=== PATIENT | male | born 1990 | race Two or more races ===

== ENCOUNTER 2017-02-14 12:38 | Emergency (ER) | payer OTHER ==
[2017-02-14 13:01] VITALS: BP 125/83
--- NOTE | 2017-02-14 13:36 | ER Document Report ---
ED Medical Screen (RME) - General Chief Complaint: Incision Problem Stated Complaint: DISCHARGE FROM ARM/PIC LINE Time Seen by Provider: 02/14/17 13:31 Mode of Arrival: Ambulatory Information source: Patient Notes: 27-year-old male presents with cocnerns of infected picc line. pt denies any fevers or chills pt had surgery on his foot, became infected had second surgery and was recently discharged. Patient is receiving Invanz I have greeted and performed a rapid initial assessment of this patient. A comprehensive ED assessment and evaluation of the patient, analysis of test results and completion of the medical decision making process will be conducted by additional ED providers. PHYSICAL EXAMINATION: GENERAL: Well-appearing, well-nourished and in no acute distress. HEAD: Atraumatic, normocephalic. EYES: Pupils equal round extraocular movements intact, conjunctiva are normal. ENT: Nares patent NECK: Normal range of motion LUNGS: No respiratory distress Musculoskeletal:right foot in brace NEUROLOGICAL: Normal speech, normal gait. PSYCH: Normal mood, normal affect. SKIN: right bicep picc line noted TRAVEL OUTSIDE OF THE [place] IN LAST 30 DAYS: No - Related Data Allergies/Adverse Reactions: No Known Allergies Allergy (Verified 02/14/17 13:01) Past Medical History Renal/ Medical History: Denies: Hx Peritoneal Dialysis - Immunizations Immunizations up to date: Yes Hx Diphtheria, Pertussis, Tetanus Vaccination: Yes Physical Exam - Vital signs Vitals: Temp Pulse Resp BP Pulse Ox 98.3 F 84 16 125/83 98 02/14/17 12:55 02/14/17 12:55 02/14/17 12:55 02/14/17 12:55 02/14/17 12:55 Course - Vital Signs Vital signs: Temp Pulse Resp BP Pulse Ox 98.3 F 84 16 125/83 98 02/14/17 12:55 02/14/17 12:55 02/14/17 12:55 02/14/17 12:55 02/14/17 12:55
--- NOTE | 2017-02-14 14:44 | ER Document Report ---
ED General - General Chief Complaint: Incision Problem Stated Complaint: DISCHARGE FROM ARM/PIC LINE Time Seen by Provider: 02/14/17 13:31 Mode of Arrival: Ambulatory Information source: Patient Notes: This is a 27-year-old man who sustained a foot fracture in January 07 and had surgery at [facility] and January 18. Postoperative. Was significant for infection (February 01) and the patient was admitted back at [facility] on February 05 - February 10 during which she received IV antibiotics, surgery and a PICC line. Patient presents today because of concerns for expressible pus at the base of the PICC line. The patient denies any fever, chills, increasing pain, redness to the arm. TRAVEL OUTSIDE OF THE [place] IN LAST 30 DAYS: No - HPI Onset: Just prior to arrival Onset/Duration: Sudden Quality of pain: No pain Severity: None Pain Level: Denies Associated symptoms: denies: Chest pain, Fever, Shortness of breath Exacerbated by: Denies Relieved by: Denies Similar symptoms previously: No Recently seen / treated by doctor: No - Related Data Allergies/Adverse Reactions: No Known Allergies Allergy (Verified 02/14/17 13:01) Past Medical History - General Information source: Patient - Social History Smoking Status: Never Smoker Cigarette use (# per day): No Chew tobacco use (# tins/day): No Frequency of alcohol use: None Drug Abuse: None Lives with: Family Family History: Reviewed & Not Pertinent Patient has suicidal ideation: No Patient has homicidal ideation: No - Past Medical History Cardiac Medical History: Reports: None Pulmonary Medical History: Reports: None EENT Medical History: Reports: None - 1 Neurological Medical History: Reports: None Endocrine Medical History: Reports: None Renal/ Medical History: Reports: None. Denies: Hx Peritoneal Dialysis Malignancy Medical History: Reports None GI Medical History: Reports: None Musculoskeltal Medical History: Reports Other - Recent fracture of the right foot Psychiatric Medical History: Reports: None Past Surgical History: Reports: Hx Orthopedic Surgery - Immunizations Immunizations up to date: Yes Hx Diphtheria, Pertussis, Tetanus Vaccination: Yes Review of Systems - Review of Systems Constitutional: denies: Chills, Fever EENT: No symptoms reported Cardiovascular: No symptoms reported Respiratory: No symptoms reported Gastrointestinal: No symptoms reported Genitourinary: No symptoms reported Male Genitourinary: No symptoms reported Musculoskeletal: See HPI Skin: See HPI Hematologic/Lymphatic: No symptoms reported Neurological/Psychological: No symptoms reported Physical Exam - Vital signs Vitals: Temp Pulse Resp BP Pulse Ox 98.3 F 84 16 125/83 98 02/14/17 12:55 02/14/17 12:55 02/14/17 12:55 02/14/17 12:55 02/14/17 12:55 Notes: Physical exam: GENERAL: 27-year-old man, alert and oriented 3, resting comfortably in stretcher, no acute distress. He is afebrile. HEAD: Atraumatic, normocephalic. EYES: Pupils equal round and reactive to light, extraocular movements intact, sclera anicteric, conjunctiva are normal. ENT: TMs normal, nares patent, oropharynx clear without exudates. Moist mucous membranes. NECK: Normal range of motion, supple without lymphadenopathy or JVD. LUNGS: Breath sounds clear to auscultation bilaterally and equal. No wheezes rales or rhonchi. HEART: Regular rate and rhythm without murmurs, rubs or gallops. ABDOMEN: Soft, normoactive bowel sounds. No tenderness to palpation. No guarding, no rebound. No masses appreciated. EXTREMITIES: Right upper extremity PICC line. The dressings were removed. No expressible pus. There is no erythema at the base/entrance point of the PICC line. There is no warmth or swelling to the area. The area was cleaned with chlorhexidine. Distally, the extremity does not have any erythema, swelling or warmth. Distal pulses are good. Distal sensation is good. Right foot status post surgery and dressing. Good cap refill to toes. NEUROLOGICAL: Cranial nerves II through XII grossly intact. Normal speech, normal gait. PSYCH: Normal mood, normal affect. SKIN: As noted above on the right upper extremity exam Course - Re-evaluation Re-evalutation: 02/14/17 17:28 I did leave a message on the [employer] service (Caron Leyva) at [phone] these of the folks that have been following the patient at home for the line.. His next antibiotics and not due till noon tomorrow. I do not see any evidence of infection at this time and the site looks really good. He is afebrile and his white count is normal. I have called [facility] and there PICC line service is not in over the weekend. They gave me the number for the PICC line service outpatient unit([phone]) and I have advised the patient to call there first thing in the morning to be reevaluated. If it does get infected, I have explained to him that the line will need to be replaced. I have given him a copy of today's labs to bring to that outpatient unit for evaluation. - Vital Signs Vital signs: Temp Pulse Resp BP Pulse Ox 98.3 F 84 16 125/83 98 02/14/17 12:55 02/14/17 12:55 02/14/17 12:55 02/14/17 12:55 02/14/17 12:55 - Laboratory Result Diagrams: 02/14/17 14:55 02/14/17 14:55 Discharge - Discharge Clinical Impression: PICC line discharge Condition: Stable Disposition: HOME, SELF-CARE Additional Instructions: As we discussed, at this time, the PICC line site looks good. For this reason he was not had any fever and your white count is normal. We do have to follow this PICC line closely. I would like you to call the outpatient unit at [facility] tomorrow ([phone] and tell them that) you had a PICC line placed recently and had had some discharge in the ER doctor wanted to reevaluated. This is the unit that puts those PICC lines in at [facility]. If you start developing fevers, worsening discharge, redness or swelling to the area, The PICC line will have to be removed and you will have to have another one placed. These PICC lines are not put in in the emergency room here at [facility]. If you develop worsening symptoms, I recommend you go back to the [place] ER because most likely they will need to set up placement of a new line. .
[2017-02-14 15:27] LABS: ABSOLUTE EOSINOPHILS # (AUTO) 0.2 10^3/uL (0.0-0.6); ABSOLUTE LYMPHOCYTES (AUTO) 2.5 10^3/uL (0.5-4.7); ABSOLUTE NEUT (AUTO) 4.5 10^3/uL (1.7-8.2); BASOPHILS % (AUTO) 0.5 % (0-2); EOSINOPHILS % (AUTO) 2.9 % (0-6); HEMATOCRIT 43.2 % (37.9-51.0); HEMOGLOBIN 14.5 g/dL (13.5-17.0); HGB HCT DIFFERENCE 0.3; LYMPHOCYTES % (AUTO) 30.5 % (13-45); MEAN CORPUSCULAR HEMOGLOBIN 29.2 pg (27.0-33.4); MEAN CORPUSCULAR HGB CONC 33.6 g/dL (32.0-36.0); MEAN CORPUSCULAR VOLUME 87 fl (80-97); MONOCYTES % (AUTO) 11.9 % (3-13); RED BLOOD COUNT 4.98 10^6/uL (4.35-5.55); RED CELL DISTRIBUTION WIDTH 13.9 % (11.5-14.0); SEGMENTED NEUTROPHILS % (AUTO) 54.2 % (42-78); WHITE BLOOD COUNT 8.3 10^3/uL (4.0-10.5)
[2017-02-14 15:34] LABS: ALANINE AMINOTRANSFERASE 41 U/L (21-72); ALBUMIN 4.5 g/dL (3.5-5.0); ALKALINE PHOSPHATASE 84 U/L (38-126); ANION GAP 13 (5-19); ASPARTATE AMINO TRANSFERASE 30 U/L (17-59); BILIRUBIN,DIRECT 0.3 mg/dL (0.0-0.4); BILIRUBIN,TOTAL 0.5 mg/dL (0.2-1.3); BLOOD UREA NITROGEN 11 mg/dL (7-20); CALCIUM 9.5 mg/dL (8.4-10.2); CARBON DIOXIDE 25 mmol/L (22-30); CHLORIDE 102 mmol/L (98-107); CREATININE RESULT 0.92 mg/dL (0.52-1.25); GLUCOSE 110 mg/dL (75-110); POTASSIUM 4.4 mmol/L (3.6-5.0); SODIUM 140.3 mmol/L (137-145); TOTAL PROTEIN 7.8 g/dL (6.3-8.2)
== END 2017-02-14 19:31 | disposition home or self-care (01) ==
LOC: ER 12:38
DX: Z45.2 Encounter for adjustment and management of vascular access device (principal); T81.4XXA Infection following a procedure, initial encounter; Y83.9 Surgical procedure, unspecified as the cause of abnormal reaction of the patient, or of later complication, without mention of misadventure at the time of the procedure
CPT/HCPCS: 36415; 80053; 85025; 87040; 99283

== ENCOUNTER → 2017-04-21 | Outpatient (CLI) | payer OTHER ==
--- NOTE | 2017-04-21 13:55 | RADIOLOGY REPORT (SQ) ---
EXAM DESCRIPTION: CT RT LOWER EXTREMITY WITHOUT COMPLETED DATE/TIME: 04/21/2017 1:09 pm REASON FOR STUDY: DISPLACED FX OF SECOND METATARSAL BONE, LEFT FOOT (S92.322A) S92.322A DISP FX OF SECOND METATARSAL BONE, LEFT FOOT, INIT COMPARISON: None. TECHNIQUE: Axial imaging performed through the right foot with reformatted coronal and sagittal imag ing windowed for bone and soft tissues. Images saved to PACS. 3D IMAGING: Were 3D images as MIP, SSD, or volume rendering performed at the work station? Yes All CT scanners at this facility use dose modulation, iterative reconstruction, and/or weight based d osing when appropriate to reduce radiation dose to as low as reasonably achievable (ALARA). [facility]: Dose Right [facility]: CareDose [facility]: Dose Right [facility]: Teradose 4D [facility]: [employer] LIMITATIONS: Limited clinical information. Dates of original injury and surgery not available to me . RADIATION DOSE: Up-to-date CT equipment and radiation dose reduction techniques were employed. CTDIv ol: 3.8 - 4.7 mGy. DLP: 186 mGy-cm. mGy. FINDINGS: SOFT TISSUES: Limited assessment without contrast. Mild dorsal soft tissue swelling. No suggestion of gross drainable fluid collection. BONES: Comminuted healing fractures through the base of the 2nd metatarsal. Fracture lines are still evident, however there appears to be some callus and blurring of fracture lines. Plate and screw fi xation across the cuneiform since 2nd and 3rd metatarsal bases, grossly intact. Probable developing fusion along the dorsal 2nd and throughout the 3rd tarsometatarsal articulations. Normal tarsometata rsal alignment. Patchy osteopenia suggested in the foot. OTHER: No other significant finding. IMPRESSION: 1. Healing fractures in the 2nd metatarsal base. Status post open reduction internal fi xation with no malalignment detected. TECHNICAL DOCUMENTATION: JOB ID: [id number] Quality ID # [id number]: Final reports with documentation of one or more dose reduction techniques (e.g., Au tomated exposure control, adjustment of the mA and/or kV according to patient size, use of iterative reconstruction technique) 2010 [employer]- All Rights Reserved
== END ==
LOC: RAD 12:43
PROVIDERS: ATTEND Orthopaedic Surgery
DX: S92.322A Displaced fracture of second metatarsal bone, left foot, initial encounter for closed fracture (principal); X58.XXXA Exposure to other specified factors, initial encounter; Y93.9 Activity, unspecified; Y92.9 Unspecified place or not applicable; Y99.9 Unspecified external cause status

== ENCOUNTER → 2017-06-18 | Outpatient (CLI) | payer OTHER ==
--- NOTE | 2017-06-20 16:06 | RADIOLOGY REPORT (SQ) ---
CORRECTED REPORT EXAM DESCRIPTION: CT RT LOWER EXTREMITY WITHOUT COMPLETED DATE/TIME: 06/18/2017 9:09 am REASON FOR STUDY: DISP FX OF SECOND METATARSAL BONE, RIGHT FOOT, INIT (S92.321A ) S92.321A DISP FX OF SECOND METATARSAL BONE, RIGHT FOOT, INIT COMPARISON: 04/21/2017 TECHNIQUE: Axial imaging performed through the right foot with reformatted coronal and sagittal imaging windowed for bone and soft tissues. Images saved to PACS. 3D IMAGING: Were 3D images as MIP, SSD, or volume rendering performed at the work station? Yes All CT scanners at this facility use dose modulation, iterative reconstruction, and/or weight based dosing when appropriate to reduce radiation dose to as low as reasonably achievable (ALARA). [facility]: Dose Right [facility]: CareDose [facility]: Dose Right [facility]: Teradose 4D [facility]: [employer] LIMITATIONS: None. RADIATION DOSE: CT Rad equipment meets quality standard of care and radiation dose reduction techniques were employed. CTDIvol: 4.6 mGy. DLP: 147 mGy-cm. mGy. FINDINGS: SOFT TISSUES: No significant swelling. BONES: No acute fracture. Healing fractures in the base of the 2nd and 3rd metatarsals and cuboid. Fixation hardware at the 2nd and 3rd tarsal - metatarsal joints appears intact. No erosive changes. MINERALIZATION: Normal. OTHER: No other significant finding. IMPRESSION: No acute fracture. Healing fractures in the base of the 2nd and 3rd metatarsals and cuboid. Fixation hardware at the 2nd and 3rd tarsal - metatarsal joints appears intact. TECHNICAL DOCUMENTATION: JOB ID: [id number] Quality ID # [id number]: Final reports with documentation of one or more dose reduction techniques (e.g., Automated exposure control, adjustment of the mA and /or kV according to patient size, use of iterative reconstruction technique) 2010 [employer]- All Rights Reserved <Electronically signed by SUE JAIN MD in [place]> 06/20/17 1606 [facility]
== END ==
LOC: RAD 08:40
PROVIDERS: ATTEND Orthopaedic Surgery
DX: S92.321A Displaced fracture of second metatarsal bone, right foot, initial encounter for closed fracture (principal); X58.XXXA Exposure to other specified factors, initial encounter; Y93.9 Activity, unspecified; Y92.9 Unspecified place or not applicable; Y99.9 Unspecified external cause status

== ENCOUNTER 2018-05-18 12:41 | Emergency (ER) | payer OTHER ==
[2018-05-18 12:54] VITALS: BP 147/95
--- NOTE | 2018-05-18 13:22 | ER Document Report ---
ED Extremity Problem, Lower - General Chief Complaint: Foot Pain Stated Complaint: RIGHT FOOT PAIN Time Seen by Provider: 05/18/18 12:59 Mode of Arrival: Ambulatory Information source: Patient Notes: Chief complaint: Right lower leg pain History of complain:( obtained from----patient) 28 years old male who had a cast because of the fracture of the tarsal and metatarsal bones. The cast is tightening and causing severe pain and burning sensation inside therefore present to the ED. Onset: Last few days gradual Duration: Last few days Severity: Moderate to severe Quality: Sharp Context: Cast Exacerbating factor and relieving factors: REVIEW OF SYSTEMS: CONSTITUTIONAL : Denies fever, chills, or sweats. Denies recent illness. EENT: Denies eye, ear, throat, or mouth pain or symptoms. Denies nasal or sinus congestion or discharge. Denies throat, tongue, or mouth swelling or difficulty swallowing. CARDIOVASCULAR: Denies chest pain. Denies palpitations or racing or irregular heart beat. Denies ankle edema. RESPIRATORY: Denies cough, cold, or chest congestion. Denies shortness of breath, difficulty breathing, or wheezing. GASTROINTESTINAL: Denies distention. Denies nausea, vomiting, or diarrhea. Denies blood in vomitus, stools, or per rectum. Denies black, tarry stools. Denies constipation. GENITOURINARY: Denies difficulty urinating, painful urination, burning, frequency, blood in urine, or discharge. FEMALE GENITOURINARY: Denies vaginal bleeding, heavy or abnormal periods, irregular periods. Denies vaginal discharge or odor. MUSCULOSKELETAL: Denies back or neck pain or stiffness. Denies joint pain or swelling. SKIN: Denies rash, lesions or sores. HEMATOLOGIC : Denies easy bruising or bleeding. LYMPHATIC: Denies swollen, enlarged glands. NEUROLOGICAL: Denies confusion or altered mental status. Denies passing out or loss of consciousness. Denies dizziness or lightheadedness. Denies headache. Denies weakness or paralysis or loss of use of either side. Denies problems with gait or speech. Denies sensory loss, numbness, or tingling. Denies seizures. PSYCHIATRIC: Denies anxiety or stress. Denies depression, suicidal ideation, or homicidal ideation. ALL OTHER SYSTEMS REVIEWED AND NEGATIVE. PHYSICAL EXAMINATION: GENERAL: Well-appearing, well-nourished and in no acute distress. HEAD: Atraumatic, normocephalic. EYES: Pupils equal round and reactive to light, extraocular movements intact, conjunctiva are normal. ENT: Nares patent, oropharynx clear without exudates. Moist mucous membranes. NECK: Normal range of motion, supple without lymphadenopathy LUNGS: Breath sounds clear to auscultation bilaterally and equal. No wheezes rales or rhonchi. HEART: Regular rate and rhythm without murmurs ABDOMEN: Soft, nontender, nondistended abdomen. No guarding, no rebound. No masses appreciated. Examination of genitals-deferred Musculoskeletal: Normal range of motion, no pitting or edema. No cyanosis. Except the right leg entire lower leg casted. Tips of the toenails are visible they are not cyanotic. Or pale NEUROLOGICAL: Cranial nerves grossly intact. Normal speech, normal gait. Normal sensory, motor exams PSYCH: Normal mood, normal affect. SKIN: Warm, Dry, normal turgor, no rashes or lesions noted. Dictation was performed using [employer] voice recognition software TRAVEL OUTSIDE OF THE [place] IN LAST 30 DAYS: No - HPI Notes: Dictated - Related Data Allergies/Adverse Reactions: No Known Allergies Allergy (Verified 05/18/18 12:44) Past Medical History - Social History Smoking Status: Current Some Day Smoker Chew tobacco use (# tins/day): Yes Frequency of alcohol use: Rare Drug Abuse: None Lives with: Family Family History: Reviewed & Not Pertinent Patient has suicidal ideation: No Patient has homicidal ideation: No Renal/ Medical History: Denies: Hx Peritoneal Dialysis Past Surgical History: Reports: Hx Orthopedic Surgery - Immunizations Immunizations up to date: Yes Hx Diphtheria, Pertussis, Tetanus Vaccination: Yes Review of Systems - Review of Systems Notes: Dictated Physical Exam - Vital signs Vitals: Temp Pulse Resp BP Pulse Ox 98.1 F 98 20 147/95 H 100 05/18/18 12:52 05/18/18 12:52 05/18/18 12:52 05/18/18 12:52 05/18/18 12:52 - Notes Notes: Dictated Course - Re-evaluation Re-evalutation: 05/18/18 13:21 Cast on the medial side was cut and the compression was relieved - Vital Signs Vital signs: Temp Pulse Resp BP Pulse Ox 98.1 F 98 20 147/95 H 100 05/18/18 12:52 05/18/18 12:52 05/18/18 12:52 05/18/18 12:52 05/18/18 12:52 Procedures - Additional Procedures Cast getting Time performed: 13:20 Notes: 05/18/18 13:22 Right lower leg cast was cut with a cast cutter. Without complications Discharge - Discharge Clinical Impression: Right leg pain, Right foot pain Condition: Fair Disposition: HOME, SELF-CARE Instructions: Leg Pain Nonspecific ([facility]) Referrals: ZEINAB SERRATO MD [Primary Care Provider] - Follow up as needed
== END 2018-05-18 13:25 | disposition home or self-care (01) ==
LOC: ER 12:41
DX: M79.671 Pain in right foot (principal); M79.605 Pain in left leg; F17.200 Nicotine dependence, unspecified, uncomplicated
CPT/HCPCS: 99283